=== PATIENT | male | born 1970 | race Caucasian/White ===

== ENCOUNTER 2017-10-08 16:52 | Inpatient (IN) | payer OTHER ==
[~2017-10-08] VITALS: Ht 190.5 cm; Wt 115.7 kg
[~2017-10-08 16:52] MED LIST: AMLO10TA2 PO; DOCU100C36 PO; IBUP-66 PO; Lisinopril PO; NAPR500T3 PO; NICO1PAT44 TP; OMEP20CA10 PO; PRAM0.253 PO; TRAZ-144 PO; VENL75CA56 PO
[2017-10-08 18:00] VITALS: BP 154/99
--- NOTE | 2017-10-08 18:00 | NUR ---
INTAKE ASSESSMENT Received patient in intake. He is AOX4, stable, and ambulatory. Vital signs WNL. Patient reports allergic to shell fish. Patient has seizure history last seizure was in April 2017. Patient brought home medications with him. Explained unit protocols and patient verbalized understanding. Will admit patient upon admission to third floor.
[2017-10-08 18:14] LABS: *AMPHETAMINE, URINE NEGATIVE (NEGATIVE); *BARBITURATE, URINE NEGATIVE (NEGATIVE); *CANNABINOID, URINE NEGATIVE (NEGATIVE); *COCCAINE, URINE NEGATIVE (NEGATIVE); *OPIATE, URINE NEGATIVE (NEGATIVE); *PHENCYCLIDINE SCREEN,URINE NEGATIVE (NEGATIVE)
[2017-10-08] MEDS ORDERED: ACETAMINOPHEN 325 MG TABLET PO PRN (18:45)
[2017-10-08] MEDS ORDERED: MIRALAX 17 GM POWD.PACK PO PRN (18:45)
[2017-10-08] MEDS ORDERED: LOPERAMIDE HCL 2 MG CAPSULE PO PRN ×2 (18:45)
[2017-10-08] MEDS ORDERED: LORAZEPAM 1 MG TABLET PO PRN ×2 (18:45)
[2017-10-08] MEDS ORDERED: MAG HYDROX/AL HYDROX/SIMETH 30 ML LIQUID UDC PO PRN (18:45)
[2017-10-08] MEDS ORDERED: ONDANSETRON ODT 4 MG TAB.RAPDIS SL PRN (18:45)
[2017-10-08] MEDS ORDERED: CLONIDINE HCL 0.1 MG TABLET PO PRN (18:45)
[2017-10-08] MEDS ORDERED: LORAZEPAM 2 MG/1 ML VIAL IM PRN (18:45)
[2017-10-08] MEDS ORDERED: MAGNESIUM HYDROXIDE 30 ML LIQUID UDC PO PRN (18:45)
[2017-10-08] MEDS ORDERED: ONDANSETRON 4 MG/2 ML VIAL IM PRN (18:45)
[2017-10-08] MEDS ORDERED: diphenhydrAMINE 50 MG CAPSULE PO PRN (18:45)
[2017-10-08] MEDS ORDERED: THIAMINE HCL 200 MG/2 ML VIAL IM ONE (18:45)
[2017-10-08] MEDS ORDERED: DICYCLOMINE HCL 20 MG TABLET PO PRN (18:45)
[2017-10-08] MEDS ORDERED: PRAM0.253 PO (18:54)
[2017-10-08] MEDS ORDERED: METO-302 PO (18:54)
[2017-10-08] MEDS ORDERED: campral (18:54)
[2017-10-08] MEDS ORDERED: ROPI0.5T PO (18:54)
[2017-10-08] MEDS ORDERED: TRAZ150T75 PO (18:54)
[2017-10-08] MEDS ORDERED: VENL75TA4 PO (18:54)
[2017-10-08] MEDS ORDERED: LISI-603 PO (18:54)
[2017-10-08] MEDS ORDERED: SIMV20TA6 PO (18:54)
[2017-10-08] MEDS ORDERED: NAPR500T6 PO (18:54)
[2017-10-08] MEDS ORDERED: TOPI25TA PO (18:54)
[2017-10-08 19:16] LABS: BASOPHILS # (AUTO) 0.1 K/uL (0.0-8.0); BASOPHILS % (AUTO) 0.5 % (0.0-2.0); EOSINOPHILS # (AUTO) 0.1 K/uL (0.0-0.7); EOSINOPHILS % (AUTO) 0.9 % (0.0-7.0); HEMATOCRIT 46.9 % (40-50); HEMOGLOBIN 15.1 G/DL (14.0-18.0); LYMPHOCYTES # (AUTO) 2.3 K/UL (0.8-4.8); MEAN CORPUSCULAR HEMOGLOBIN 25.5 UUG (27.0-31.0); MEAN CORPUSCULAR HGB CONC 32 g/dL (32.0-37.0); MEAN CORPUSCULAR VOLUME 78.7 FL (82.0-92.0); MONOCYTES # (AUTO) 0.6 K/UL (0.1-1.30); MONOCYTES % (AUTO) 5.9 % (0.0-11.0); NEUTROPHILS # (AUTO) 7.3 K/UL (1.8-8.9); NEUTROPHILS % (AUTO) 70.7 % (38.5-71.5); PLATELET COUNT (AUTO) 338 K/UL (150-450); RED BLOOD CELL COUNT(AUTO) 5.95 MIL/UL (4.7-6.1); WHITE BLOOD COUNT (AUTO) 10.4 K/UL (4.0-11.2)
[2017-10-08 19:22] LABS: BILIRUBIN,TOTAL 0.3 mg/dL (0.2-1.0); CREATININE 1.1 mg/dL (0.6-1.3); MAGNESIUM 1.7 mg/dL (1.8-2.4); POTASSIUM 3.6 mmol/L (3.5-5.1); TOTAL PROTEIN, SERUM 8.1 g/dL (6.4-8.2)
[2017-10-08] MEDS: IBUPROFEN 600 MG TABLET PO PRN (19:42)
--- NOTE | 2017-10-08 19:42 | NUR ---
PRN ATIVAN, MOTRIN, & CLONIDINE Patient has a CIWA score of 16 and reports pain 7/10 for his legs bilaterally. Patient's BP is 167/103, pt reports moderate anxiety and mild agitation. PRN Ativan 2mg given for CIWA of 16, Motrin 600mg given for pain, and Clonidine given for anxiety, agitation, and BP > 160/100. Patient's respirations 16/min, unlabored; pt denies SOB. SN stayed with patient and encouraged patient to verbalize feelings and utilize breathing exercises. Saftey measures in place, bed locked in low position, side rails up x2, call light within reach. Will reassess in one hour.
[2017-10-08 20:00] VITALS: BP 167/103
--- NOTE | 2017-10-08 20:30 | NUR ---
ADMISSION NOTE Patient is a 47-year-old male admitted on 10/08/17 for ETOH dependence, arrived on the unit at 1800. Patient is allergic to shellfish and reports he has a history of seizures. Patients last seizure was in April 2017. Patient was able to provide UDS at intake. Upon admission CIWA 16, BP: 167/103, P: 120, R: 18, O2: 96%, T: 99.5, pain: 7/10 bilateral legs. Weight 175, height 5 9. Patient reports he has a PCP and he smokes about 10 cigarettes daily. Patient was recently hospitalized, last month, 5150 at [facility] for DTS. Patient is able to understand and respond to all questions pertaining to his hospitalization. Substance Abuse History is as follows: 1. ETOH (vodka) 1.5 liters daily, at this rate for 8 months. Last intake was 500 mL on 10/08/17. Patients longest sober period for 8 months last year, and patient relapsed February of 2017. This is patients second treatment. His first treatment was last year at [facility]. Patient denies fci or fpc. Patient reports that his grandfather on his mothers side of the family was an alcoholic. PMH includes: Anxiety, pancreatitis (2011), sigmoid colon rupture and resection (3 feet), inguinal hernia x 2 (left x1, right x1), hyperkalemia, hypertension, diverticulitis, hypercholesterolemia, restless leg syndrome, and seizure history. Patient brought medications from home, they were reconciled by day shift nurse. Upon assessment, patient is alert and oriented x4, mildly intoxicated, presenting with anxiety and flushed face. Skin is intact, patient states he does not feel well. Patients respirations even and unlabored, patient denies SOB or chest pain. Patient reports mild nausea with no episodes of emesis. Bowel sounds active x 4, abdomen soft and non-tender, patient reports last BM was earlier today, normal, formed, brown and moderate amount, with no abnormal odor noted. PERRLA. Patient denies SI/HI. Educational information provided and left at bedside. Patient was oriented to room and unit, encouraged to notify staff/nurse with any concerns. Patient on fall and seizure precautions, safety measures in place. Call light within reach, side rails up x 2, bed locked and in low position. Will continue to monitor.
--- NOTE | 2017-10-08 20:42 | NUR ---
PRN ATIVAN, MOTRIN, & CLONIDINE REASSESSMENT Patient verbalizes feeling less anxious and less agitated. Patient reports pain 2/10 for his legs bilaterally. Patient's BP is 121/74 upon reassessment. PRN Ativan, Motrin, and Clonidine effective. Saftey measures in place, bed locked in low position, side rails up x2, call light within reach. Will continue to monitor.
[2017-10-08] MEDS: GABAPENTIN 300 MG CAPSULE PO SCH (21:29)
[2017-10-08] MEDS: HYDROXYZINE PAMOATE 25 MG CAPSULE PO PRN (22:18)
--- NOTE | 2017-10-08 22:18 | NUR ---
PRN VISTARIL Patient reports increase in anxiety. PRN Vistaril given PO. Safety measures in place, bed locked in low position, side rails up x2, call light within reach. Will reassess in one hour.
--- NOTE | 2017-10-08 23:18 | NUR ---
PRN VISTARIL REASSESSMENT Patient reports improvement in anxiety. PRN Vistaril effective. Patient's respirations even and unlabored. Safety measures in place, call light within reach. Will continue to monitor.
[2017-10-09] VITALS: BP 137/78
--- NOTE | 2017-10-09 | NUR ---
MIDNIGHT CIWA DEFERRED Midnight CIWA deferred due to patient asleep; to be assessed and scored while patient is awake per protocol. Patient's respirations are 16/min, even and unlabored. Safety measures in place, bed locked in low position, side rails up x2, call light within reach. Will continue to monitor.
[2017-10-09 04:00] VITALS: BP 142/90
--- NOTE | 2017-10-09 04:00 | NUR ---
4AM CIWA DEFERRED 4AM CIWA deferred due to patient asleep; to be assessed and scored while patient is awake per protocol. Patient's respirations are 16/min, even and unlabored. Safety measures in place, bed locked in low position, side rails up x2, call light within reach. Will continue to monitor.
--- NOTE | 2017-10-09 07:15 | NUR ---
END OF SHIFT Patient is a 47-year-old male admitted on 10/08/17 for ETOH dependence. Patient has past medical history of anxiety, pancreatitis (2011), sigmoid colon rupture and resection (3 feet), inguinal hernia x 2 (left x1, right x1), hyperkalemia, hypertension, diverticulitis, hypercholesterolemia, restless leg syndrome, and seizure history, patient's last seizure was in April 2017. Patient is allergic to shellfish, is FULL code, and on a regular diet. Patient slept for 7 hours, total intake 1,500 mL, void x4, stool x0. Patient received PRN Ativan, Motrin, Clonidine and Vistaril; all PRNs were effective. Last CIWA score was 16 at 2000. Patient is on fall and seizure precautions, safety measures in place. Call light within reach, side rails up x 2, bed locked and in low position. Will endorse to day shift.
--- NOTE | 2017-10-09 07:59 | NUR ---
BEGINNING OF SHIFT Patient endorsement report received from pearl maker nurse, all pertinent information discussed. patient is a 47 year old male admitted on: 10/08/2017, patient with admitting Dx: etoh dependence. Patient currently with no ongoing taper, is under close observation for s/sx of withdrawal. During pearl maker patient received PRN: Motrin, Ativan, Clonidine, and vistaril., last ciwa score of: 16. slept for 7 hours. Received patient in room. Alert and oriented x 4. On fall and seizure precautions. Educated patient on the current plan of care for the day and medication regimen. Safety measures in place. call light kept with in reach, will continue to monitor closely.
[2017-10-09 08:18] VITALS: BP 153/96
[2017-10-09] MEDS: GABAPENTIN 300 MG CAPSULE PO SCH ×3 (08:54→20:51)
[2017-10-09] MEDS: LORAZEPAM 1 MG TABLET PO SCH ×4 (08:54→20:51)
[2017-10-09] MEDS: DOCUSATE SODIUM 250 MG CAPSULE PO SCH (08:54)
[2017-10-09] MEDS: MULTIVITAMINS,THERAPEUTIC TABLET PO SCH (08:54)
[2017-10-09] MEDS: THIAMINE HCL 100 MG TABLET PO SCH (08:54)
[2017-10-09] MEDS: FOLIC ACID 1 MG TABLET PO SCH (08:54)
[2017-10-09] MEDS ORDERED: TUBERCULIN,PURIF.PROT.DERIV. 5 TU/0.1 ML TEST ID ONE (09:00)
[2017-10-09] MEDS ORDERED: 5 DAY TAPER OF LORAZEPAM -SERENITY PROTOCOL PO PRN (09:00)
[2017-10-09] MEDS ORDERED: DOCUSATE SODIUM 100 MG CAPSULE PO PRN (09:45)
[2017-10-09] MEDS ORDERED: PRAMIPEXOLE 0.25 MG TABLET PO SCH ×2 (09:45→18:00)
[2017-10-09] MEDS: LISINOPRIL 20 MG TABLET PO SCH ×2 (10:57→20:51)
[2017-10-09] MEDS: TOPIRAMATE 25 MG TABLET PO SCH ×2 (10:58→17:01)
[2017-10-09] MEDS: NICOTINE 14 MG/24HR PATCH TD SCH (10:58)
[2017-10-09] MEDS: AMLODIPINE 10 MG TABLET PO SCH (10:58)
[2017-10-09 12:25] VITALS: BP 146/96
[2017-10-09] MEDS: METOPROLOL SUCCINATE XL 25 MG TAB.SR.24H PO SCH (12:55)
[2017-10-09] MEDS ORDERED: METOPROLOL SUCCINATE XL 25 MG TAB.SR.24H PO SCH (13:00)
[2017-10-09] MEDS: VENLAFAXINE XR 75 MG CAP.SR.24H PO SCH (14:10)
[2017-10-09 17:50] VITALS: BP 149/96
[2017-10-09] MEDS ORDERED: ropiniROLE 0.5 MG TABLET PO SCH (18:00)
--- NOTE | 2017-10-09 18:56 | NUR ---
END OF SHIFT Patient alert and oriented x4, compliant with therapeutic plan of care. Patient with admitting Dx: etoh dependence. Patient continues on 5 day Ativan taper as ordered, well tolerated, patient currently on day 1 of taper, well tolerated, no ASE noted. 0900 assessment patient presented with: mild nausea with no vomiting, moderate tremors, mild sweats, moderate anxiety and very mild pins and needle sensation to feet with ciwa score of: 12; 1300 assessment patient presented with: moderate tremors, mild sweats, moderate anxiety and very mild pins and needle sensation to feet with ciwa score of: 11. 1700 assessment patient presented with: barely sweating, moderate tremors, moderate anxiety and very mild pins and needle sensation to feet with ciwa score of: 10. Detox medication effective at reducing withdrawal symptoms. Patient encouraged adequate PO fluid intake as tolerated. Encouraged to attend group therapies/sessions to learn new coping skills to prevent relapse, preferred to stay in room, per patient would like to rest, denies any SI/HI. Patient Patients Respirations even and unlabored. No SOB noted, lungs are clear upon auscultation. Skin warm and dry to touch. Abdomen soft and non-distended with (+) BS in all 4 quadrants. No complains of N/V/D or constipation noted. Bladder non-distended. Voids independently. Safety measures in place. Call light kept with in reach. All needs met and rendered. Patient endorsed to sale professional digital marketing nurse, all pertinent information discussed.
[2017-10-09] MEDS: PRAMIPEXOLE 0.25 MG TABLET PO SCH (19:05)
--- NOTE | 2017-10-09 19:30 | NUR ---
START OF SHIFT Pt is a 47 y/o male admitted on 10/08/17 for ETOH dependence. Pt was dependent on 1.5 L of vodka daily for the past 8 months. Pt is full code, regular diet, allergic to shellfish and on fall/seizure precautions. Pt reports PMH of seizures r/t withdrawal, HTN, hyperlipidemia, anxiety, hyperkalemia, restless leg syndrome, diverticulitis, hernia, ADHD and hepatitis C. Pt is on a 5 day Ativan taper that started on 10/09/17, tolerating well. Upon assessment pt presents with anxiety, restlessness, muscle cramps in thighs, elevated BP and HR, decreased appetite, intermittent nausea, sweats, chills, mild tremors. Respirations 16, even and unlabored. Denies N/V/D. Denies chest pain or SOB. Medications due. Safety measures in place. Call light within reach. Will continue to monitor.
[2017-10-09 20:00] VITALS: BP 138/87
[2017-10-09] MEDS: SIMVASTATIN 20 MG TABLET PO SCH (20:51)
[2017-10-10] VITALS: BP 128/82
--- NOTE | 2017-10-10 | NUR ---
CIWA DEFERRED Pt is laying in bed with eyes closed, CIWA deferred, to be assessed when pt is awake. Respirations 18, even and unlabored. Safety measures in place. Call light within reach. Will continue to monitor.
[2017-10-10 04:00] VITALS: BP 138/89
[2017-10-10] MEDS: PANTOPRAZOLE SODIUM 40 MG TABLET.DR PO SCH (06:39)
--- NOTE | 2017-10-10 06:45 | NUR ---
PRN ZOFRAN ODT ADMINISTRATION Pt reports mild nausea with no vomiting. Safety measures in place. Call light within reach. Will continue to monitor.
[2017-10-10 07:07] LABS: HEPATITIS B SURFACE AG Negative (Negative)
--- NOTE | 2017-10-10 07:15 | NUR ---
PRN ZOFRAN REASSESSMENT Pt reports improvement in nausea. Safety measures in place. Call light within reach. Will continue to monitor.
--- NOTE | 2017-10-10 07:24 | NUR ---
END OF SHIFT Pt is a 47 y/o male admitted on 10/08/17 for ETOH dependence. Pt was dependent on 1.5 L of vodka daily for the past 8 months. Pt is full code, regular diet, allergic to shellfish and on fall/seizure precautions. Pt reports PMH of seizures r/t withdrawal, HTN, hyperlipidemia, anxiety, hyperkalemia, restless leg syndrome, diverticulitis, hernia, ADHD and hepatitis C. Pt is on a 5 day Ativan taper that started on 10/09/17, tolerating well. Pt presented with anxiety, restlessness, muscle cramps in thighs, elevated BP and HR, decreased appetite, intermittent nausea, sweats, chills, mild tremors. Scheduled medications and PRN Zofran administered, effective in S/S of withdrawal as verbalized by pt. Last CIWA 5 at 1999. Pt slept 8 hours. Intake 500 ml, void x 2, stool x 0. Safety measures in place. Call light within reach. Pts needs have been met. Endorsed to day shift nurse.
--- NOTE | 2017-10-10 07:38 | NUR ---
BEGINNING OF SHIFT Patient endorsement report received from internal combustion engine subassembler nurse, all pertinent information discussed. patient is a 47 year old male admitted on: 10/08/2017, patient with admitting Dx: etoh dependence. Patient continues on a 5 day ativan taper as ordered, well tolerated, no ASE noted. patient is schedule dto begin day 2 of taper. During internal combustion engine subassembler patient received PRN: Zofran., last ciwa score of: 5. slept for 8 hours. Received patient in room. Alert and oriented x 4. On fall and seizure precautions. Educated patient on the current plan of care for the day and medication regimen. Safety measures in place. call light kept with in reach, will continue to monitor closely.
[2017-10-10 09:00] VITALS: BP 144/95
[2017-10-10] MEDS: AMLODIPINE 10 MG TABLET PO SCH (09:39)
[2017-10-10] MEDS: DOCUSATE SODIUM 250 MG CAPSULE PO SCH (09:39)
[2017-10-10] MEDS: TOPIRAMATE 25 MG TABLET PO SCH ×2 (09:39→17:23)
[2017-10-10] MEDS: METOPROLOL SUCCINATE XL 25 MG TAB.SR.24H PO SCH (09:39)
[2017-10-10] MEDS: VENLAFAXINE XR 75 MG CAP.SR.24H PO SCH (09:39)
[2017-10-10] MEDS: LORAZEPAM 1 MG TABLET PO SCH ×3 (09:39→20:23)
[2017-10-10] MEDS: GABAPENTIN 300 MG CAPSULE PO SCH ×3 (09:39→20:24)
[2017-10-10] MEDS: MULTIVITAMINS,THERAPEUTIC TABLET PO SCH (09:39)
[2017-10-10] MEDS: FOLIC ACID 1 MG TABLET PO SCH (09:40)
[2017-10-10] MEDS: LISINOPRIL 20 MG TABLET PO SCH ×2 (09:40→20:23)
[2017-10-10] MEDS: THIAMINE HCL 100 MG TABLET PO SCH (09:40)
[2017-10-10] MEDS: NICOTINE 14 MG/24HR PATCH TD SCH (09:40)
[2017-10-10 13:14] VITALS: BP 139/93
[2017-10-10] MEDS ORDERED: LORAZEPAM 1 MG TABLET PO PRN ×2 (13:30)
--- NOTE | 2017-10-10 14:32 | NUR ---
Therapist prompted client to attend group. Client agreed to come to group.
[2017-10-10 17:08] VITALS: BP 131/90
[2017-10-10] MEDS: PRAMIPEXOLE 0.25 MG TABLET PO SCH (18:52)
--- NOTE | 2017-10-10 19:02 | NUR ---
END OF SHIFT Patient alert and oriented x4, compliant with therapeutic plan of care. Patient with admitting Dx: etoh dependence. Patient continues on 5 day Ativan taper as ordered, well tolerated, patient currently on day 2 of taper, well tolerated, no ASE noted. 0900 assessment patient presented with: tremors that can be felt but not seen, barely sweating, and moderate anxiety with ciwa score of: 7; 1300 assessment patient presented with: tremors that can be felt but not seen, barely sweating, and moderate anxiety with ciwa score of: 7; 1700 assessment patient presented with: tremors that can be felt but not seen, barely sweating, and moderate anxiety with ciwa score of: 7. Detox medication effective at reducing withdrawal symptoms. Patient encouraged adequate PO fluid intake as tolerated. Encouraged to attend group therapies/sessions to learn new coping skills to prevent relapse, denies any SI/HI. Patient Patients Respirations even and unlabored. No SOB noted, lungs are clear upon auscultation. Skin warm and dry to touch. Abdomen soft and non-distended with (+) BS in all 4 quadrants. No complains of N/V/D or constipation noted. Bladder non-distended. Voids independently. Safety measures in place. Call light kept with in reach. All needs met and rendered. Patient endorsed to night worker nurse, all pertinent information discussed.
[2017-10-10 20:00] VITALS: BP 136/91
--- NOTE | 2017-10-10 20:00 | NUR ---
START OF SHIFT NOTE RECEIVED REPORT FROM DAY SHIFT NURSE. PATIENT IS A 47 YEAR OLD MALE ADMITTED FOR ETOH DEPENDENCE. PATIENT IS ON 2ND DAY OF HIS 5 DAY ATIVAN TAPER. PATIENT IS ALLERGIC TO SHELLFISH. SEIZURE HISTORY, LAST WAS APRIL 2017. SKIN INTACT. VS STABLE. PATIENT DID NOT REQUIRE ANY PRN MEDICATION. LAST CIWA 7. PATIENT COMPLIANT WITH MEDICATION AND TREATMENT PLAN. ON FALL/SEIZURE PRECAUTION. RECEIVED PATIENT IN THE ROOM, WATCHING TV, PATIENT REPORTS ANXIETY, SWEATING, NOTED WITH FINE TREMORS, DENIES ANY PAIN, NO N/V AND HE ATTENDED GROUPS . SAFETY MEASURES IN PLACE. CALL LIGHT IN REACH. WILL CONTINUE TO MONITOR
[2017-10-10] MEDS: SIMVASTATIN 20 MG TABLET PO SCH (20:24)
[2017-10-10] MEDS: HYDROXYZINE PAMOATE 25 MG CAPSULE PO PRN (21:26)
--- NOTE | 2017-10-10 21:26 | NUR ---
PRN VISTARIL ADMINISTRATION PATIENT C/O ANXIETY, NOTED RESTLESS AND IRRITABLE. PRN VISTARIL GIVEN. WILL MONITOR FOR EFFECTIVENESS
--- NOTE | 2017-10-10 22:26 | NUR ---
PRN VISTARIL RE-ASSESSMENT PATIENT ASLEEP AT THIS TIME. RESPIRATION EVEN AND UNLABORED. SAFETY MEASURES IN PLACE. CALL LIGHT IN REACH. WILL CONTINUE TO MONITOR
--- NOTE | 2017-10-11 | NUR ---
CIWA DEFERRED PATIENT SLEEPING . CIWA DEFERRED. PATIENT REFUSED VS, WANTS TO SLEEP. RESPIRATION EVEN AND UNLABORED. SAFETY MEASURES IN PLACE. CALL LIGHT IN REACH. WILL CONTINUE TO MONITOR.
[2017-10-11] MEDS: PANTOPRAZOLE SODIUM 40 MG TABLET.DR PO SCH (06:32)
--- NOTE | 2017-10-11 07:27 | NUR ---
END OF SHIFT NOTE PATIENT IS A 47 YEAR OLD MALE ADMITTED FOR ETOH DEPENDENCE. PATIENT IS ON 5 DAY ATIVAN TAPER, TOLERATED WELL AND NO ADVERSE REACTION. PATIENT IS ALLERGIC TO SHELLFISH. SEIZURE HISTORY, LAST WAS APRIL 2017. SKIN INTACT. PATIENT COMPLIANT WITH MEDICATION AND TREATMENT PLAN. PATIENT WAS GIVEN PRN OF VISTARIL AT 2126 FOR ANXIETY. ON FALL/SEIZURE PRECAUTION. SAFETY MEASURES IN PLACE. CALL LIGHT IN REACH. WILL CONTINUE TO MONITOR. SLEPT 8 HOURS. FLUID INTAKE 1,000 ML. VOIDED X 4. NO BM. LAST CIWA 5 AT 2000.
--- NOTE | 2017-10-11 07:32 | NUR ---
BEGINNING OF SHIFT Patient endorsement report received from civil design specialist nurse, all pertinent information discussed. patient is a 47 year old male admitted on: 10/08/2017, patient with admitting Dx: etoh dependence. Patient continues on a 5 day Ativan taper as ordered, well tolerated, no ASE noted. patient is scheduled to begin day 3 of taper. During civil design specialist patient received PRN: Vistaril., last ciwa score of: 5. slept for 8 hours. Received patient in room. Alert and oriented x 4. On fall and seizure precautions. Educated patient on the current plan of care for the day and medication regimen. Safety measures in place. call light kept with in reach, will continue to monitor closely.
[2017-10-11 08:06] VITALS: BP 121/86
[2017-10-11] MEDS: GABAPENTIN 300 MG CAPSULE PO SCH ×3 (08:36→20:32)
[2017-10-11] MEDS: FOLIC ACID 1 MG TABLET PO SCH (08:37)
[2017-10-11] MEDS: DOCUSATE SODIUM 250 MG CAPSULE PO SCH (08:37)
[2017-10-11] MEDS: AMLODIPINE 10 MG TABLET PO SCH (08:37)
[2017-10-11] MEDS: METOPROLOL SUCCINATE XL 25 MG TAB.SR.24H PO SCH (08:37)
[2017-10-11] MEDS: THIAMINE HCL 100 MG TABLET PO SCH (08:37)
[2017-10-11] MEDS: TOPIRAMATE 25 MG TABLET PO SCH ×2 (08:37→16:50)
[2017-10-11] MEDS: MULTIVITAMINS,THERAPEUTIC TABLET PO SCH (08:37)
[2017-10-11] MEDS: LISINOPRIL 20 MG TABLET PO SCH ×2 (08:37→20:32)
[2017-10-11] MEDS: LORAZEPAM 1 MG TABLET PO SCH ×4 (08:37→20:32)
[2017-10-11] MEDS: VENLAFAXINE XR 75 MG CAP.SR.24H PO SCH (08:37)
[2017-10-11] MEDS: NICOTINE 14 MG/24HR PATCH TD SCH (08:38)
[2017-10-11 12:26] VITALS: BP 121/86
--- NOTE | 2017-10-11 14:22 | NUR ---
Therapist prompted client to attend group today. Client agreed to attend.
[2017-10-11] MEDS: buPROPion XL 150 MG TAB.SR.24H PO SCH (16:50)
[2017-10-11 16:51] VITALS: BP 118/78
--- NOTE | 2017-10-11 18:33 | NUR ---
END OF SHIFT Patient alert and oriented x4, compliant with therapeutic plan of care. Patient with admitting Dx: etoh dependence. Patient continues on 5 day Ativan taper as ordered, well tolerated, patient currently on day 3 of taper, well tolerated, no ASE noted. 0900 assessment patient presented with: tremors that can be felt but not seen, barely sweating, moderate anxiety, an mild agitation with ciwa score of: 7; 1300 assessment patient presented with: anxiety with ciwa score of: 4; 1700 assessment patient t presented with: anxiety with ciwa score of: 4. Detox medication effective at reducing withdrawal symptoms. Patient encouraged adequate PO fluid intake as tolerated. Encouraged to attend group therapies/sessions to learn new coping skills to prevent relapse, denies any SI/HI. Patient Patients Respirations even and unlabored. No SOB noted, lungs are clear upon auscultation. Skin warm and dry to touch. Abdomen soft and non-distended with (+) BS in all 4 quadrants. No complains of N/V/D or constipation noted. Bladder non-distended. Voids independently. Safety measures in place. Call light kept with in reach. All needs met and rendered. Patient endorsed to band saw operator cake cutting nurse, all pertinent information discussed.
[2017-10-11] MEDS: PRAMIPEXOLE 0.25 MG TABLET PO SCH (19:47)
[2017-10-11 20:00] VITALS: BP 128/84
--- NOTE | 2017-10-11 20:00 | NUR ---
Start of Shift Pt is a 47 year old male admitted for ETOH dependence, placed on 5 day Ativan taper. Pt reported consuming Vodka 1.5b/daily. PMH: anxiety, HTN, Hypercholesterolemia, hyperkalemia, restless leg syndrome, diverticulitis, inguinal hernia x2, pancreatitis, sigmoid colon rupture & resection, ADHD and seizure history. Pt reports allergies to shellfish, regular diet, fall/seizure precautions and full code. Upon reassessment, pt reports feeling anxious, skin is flushed/clammy, mild chills/body aches, fine tremors noted, respirations even/unlabored, denies n/v/d, medications due. Safety measures in place, call light within reach, side rails up x2, bed locked and in low position. Will continue to monitor.
[2017-10-11] MEDS: SIMVASTATIN 20 MG TABLET PO SCH (20:32)
[2017-10-11] MEDS: TRAZODONE 100 MG TABLET PO SCH (20:33)
--- NOTE | 2017-10-12 | NUR ---
KASHWA deferred d/t pt sleeping to assess while pt is awake as ordered. Pt refused to be woken up for [address], will continue to monitor.
--- NOTE | 2017-10-12 04:00 | NUR ---
KASHWA deferred d/t pt sleeping to assess while pt is awake as ordered. Pt refused to be woken up for [address], will continue to monitor.
[2017-10-12] MEDS: PANTOPRAZOLE SODIUM 40 MG TABLET.DR PO SCH (06:54)
--- NOTE | 2017-10-12 07:05 | NUR ---
End of Shift Pt is a 47 year old male admitted for ETOH dependence, placed on 5 day Ativan taper. Pt reported consuming Vodka 1.5b/daily. PMH: anxiety, HTN, Hypercholesterolemia, hyperkalemia, restless leg syndrome, diverticulitis, inguinal hernia x2, pancreatitis, sigmoid colon rupture & resection, ADHD and seizure history. Pt reports allergies to shellfish, regular diet, fall/seizure precautions and full code. During shift, pt reported feeling anxious, skin is flushed/clammy, mild chills/body aches, fine tremors noted scheduled taper medications administered, effective in management of s/s of withdrawal as reported per pt, CIWA 5. No PRN medications administered during shift. Pt slept for 7 hours, intake of 1296 ml PO, voids x3, and stool x0. Pt continues on a 1:1 for safety. Safety measures in place, call light within reach, side rails up x2, bed locked and in low position. Endorsed to day shift nurse.
--- NOTE | 2017-10-12 07:30 | NUR ---
START OF SHIFT Pt 47 y/o male admitted for etoh withdrawal. Pt received in room on bed with eyes closed resting, but easily arousable to name. Pt alert and oriented to name, place, and time. Perrla. Skin warm and slightly moist to touch. Respirations even and unlabored. No hand tremors noted. Pt states has some anxiety this morning. It was reported that pt slept for 7 hours last night. Bed on lowest position with side rails x2 up for safety. Call light within reach. No distress noted at this time.
[2017-10-12] MEDS: buPROPion XL 150 MG TAB.SR.24H PO SCH (08:24)
[2017-10-12] MEDS: METOPROLOL SUCCINATE XL 25 MG TAB.SR.24H PO SCH (08:24)
[2017-10-12] MEDS: LISINOPRIL 20 MG TABLET PO SCH ×2 (08:25→21:43)
[2017-10-12] MEDS: THIAMINE HCL 100 MG TABLET PO SCH (08:25)
[2017-10-12] MEDS: AMLODIPINE 10 MG TABLET PO SCH (08:25)
[2017-10-12] MEDS: FOLIC ACID 1 MG TABLET PO SCH (08:25)
[2017-10-12] MEDS: TOPIRAMATE 25 MG TABLET PO SCH ×2 (08:25→16:35)
[2017-10-12] MEDS: MULTIVITAMINS,THERAPEUTIC TABLET PO SCH (08:25)
[2017-10-12] MEDS: LORAZEPAM 1 MG TABLET PO SCH ×2 (08:26→14:11)
[2017-10-12] MEDS: GABAPENTIN 300 MG CAPSULE PO SCH ×3 (08:26→20:27)
[2017-10-12] MEDS: NICOTINE 14 MG/24HR PATCH TD SCH (08:29)
[2017-10-12] MEDS: DOCUSATE SODIUM 250 MG CAPSULE PO SCH (08:29)
[2017-10-12 08:30] VITALS: BP 106/68
--- NOTE | 2017-10-12 12:26 | NUR ---
Therapist prompted client to come to group. Client agreed
[2017-10-12 12:53] VITALS: BP 112/72
[2017-10-12] MEDS ORDERED: NICOTINE 14 MG/24HR PATCH TD PRN (15:30)
[2017-10-12 16:00] VITALS: BP 115/70
[2017-10-12] MEDS ORDERED: hydrALAZINE HCL 50 MG TABLET PO PRN (16:00)
--- NOTE | 2017-10-12 18:27 | NUR ---
END OF SHIFT Pt 47 y/o male admitted for etoh withdrawal. Pt alert and oriented to name, place, and time. Perrla. Skin warm and slightly moist to touch. Respirations even and unlabored. Bilateral hand tremors noted slightly. Pt with some periods of anxiety this morning. Pt observed mostly in room , but did attend group activity today. Pt was seen by MD today. Pt medication compliant and tolerated well. No ASE noted. Bed on lowest position with side rails x2 up for safety. Call light within reach. No distress noted at this time.
--- NOTE | 2017-10-12 19:30 | NUR ---
Start of Shift Received a 47 year old male admitted on 10/08/2017 for ETOH dependence, placed on 5 day Ativan taper. PMH: anxiety, HTN, Hypercholesterolemia, hyperkalemia, restless leg syndrome, diverticulitis, inguinal hernia x2, pancreatitis, sigmoid colon rupture & resection, ADHD and seizure history. Px has allergies to shellfish, on regular diet, fall/seizure precautions and full code. During rounds at 1930, no complaints made. Safety measures in place, call light within reach, side rails up x2, bed locked and in low position. We'll continue to monitor.
[2017-10-12 20:00] VITALS: BP 91/59
[2017-10-12] MEDS: SIMVASTATIN 20 MG TABLET PO SCH (20:27)
[2017-10-12] MEDS ORDERED: LORAZEPAM 1 MG TABLET PO SCH (21:00)
[2017-10-12] MEDS ORDERED: PRAMIPEXOLE 0.25 MG TABLET PO SCH (21:00)
[2017-10-12] MEDS: TRAZODONE 100 MG TABLET PO SCH (21:41)
[2017-10-13] VITALS: BP 94/61
--- NOTE | 2017-10-13 | NUR ---
CIWA deferred CIWA deferred due to the px is asleep. To assess if the px is awake per doctor's order. We'll continue to monitor.
[2017-10-13 04:00] VITALS: BP 121/72
--- NOTE | 2017-10-13 04:00 | NUR ---
CIWA deferred CIWA deferred due to the px is asleep. To assess if the px is awake per doctor's order. We'll continue to monitor.
[2017-10-13] MEDS: PANTOPRAZOLE SODIUM 40 MG TABLET.DR PO SCH (06:34)
--- NOTE | 2017-10-13 07:19 | NUR ---
End of Shift Notes 47 year old male admitted on 10/08/2017 for ETOH dependence, placed on 5 day Ativan taper. PMH: anxiety, HTN, Hypercholesterolemia, hyperkalemia, restless leg syndrome, diverticulitis, inguinal hernia x2, pancreatitis, sigmoid colon rupture & resection, ADHD and seizure history. Px has allergies to shellfish, on regular diet, fall/seizure precautions and full code. During the shift, no complaints made. Oral intake of 1 L, voided 3x, No BM. Slept for 8 hours. Safety measures in place, call light within reach, side rails up x2, bed locked and in low position. We'll continue to monitor.
--- NOTE | 2017-10-13 07:30 | NUR ---
START OF SHIFT Pt 47 y/o male admitted for etoh withdrawal. Pt received in room on bed with eyes closed resting, but easily arousable to name. Pt alert and oriented to name, place, and time. Perrla. Skin warm and slightly moist to touch. Respirations even and unlabored. No hand tremors noted. It was reported that pt slept for 8 hours last night. Bed on lowest position with side rails x2 up for safety. Call light within reach. No distress noted at this time.
[2017-10-13 08:00] VITALS: BP 121/69
[2017-10-13] MEDS: MULTIVITAMINS,THERAPEUTIC TABLET PO SCH (08:23)
[2017-10-13] MEDS: FOLIC ACID 1 MG TABLET PO SCH (08:23)
[2017-10-13] MEDS: AMLODIPINE 10 MG TABLET PO SCH (08:23)
[2017-10-13] MEDS: GABAPENTIN 300 MG CAPSULE PO SCH ×3 (08:23→21:43)
[2017-10-13] MEDS: LISINOPRIL 20 MG TABLET PO SCH ×2 (08:23→21:45)
[2017-10-13] MEDS: TOPIRAMATE 25 MG TABLET PO SCH ×2 (08:23→16:39)
[2017-10-13] MEDS: buPROPion XL 150 MG TAB.SR.24H PO SCH (08:24)
[2017-10-13] MEDS: THIAMINE HCL 100 MG TABLET PO SCH (08:24)
[2017-10-13] MEDS: LORAZEPAM 1 MG TABLET PO SCH ×2 (08:24→21:44)
[2017-10-13] MEDS: METOPROLOL SUCCINATE XL 25 MG TAB.SR.24H PO SCH (08:24)
[2017-10-13] MEDS: NICOTINE 14 MG/24HR PATCH TD SCH (08:28)
[2017-10-13 12:00] VITALS: BP 128/68
[2017-10-13 16:00] VITALS: BP 103/62
--- NOTE | 2017-10-13 18:38 | NUR ---
END OF SHIFT Pt 47 y/o male admitted for etoh withdrawal. Pt alert and oriented to name, place, and time. Perrla. Skin warm and slightly moist to touch. Respirations even and unlabored. Bilateral hand tremors noted slightly. Pt with some periods of anxiety this morning. Pt observed mostly in room throughout the day, but did attend group activity today. Pt was seen by MD today. Pt medication compliant and tolerated well. No ASE noted. Bed on lowest position with side rails x2 up for safety. Call light within reach. No distress noted at this time.
[2017-10-13] MEDS: PRAMIPEXOLE 0.25 MG TABLET PO SCH (19:04)
[2017-10-13] MEDS: IBUPROFEN 600 MG TABLET PO PRN (19:05)
--- NOTE | 2017-10-13 19:07 | NUR ---
PRN pt with c/o headache 03/14. Motrin po prn per MD order given and tolerated well.
--- NOTE | 2017-10-13 19:15 | NUR ---
START OF SHIFT NOTE : Pt is a 47 year old male admitted for ETOH dependence, placed on 5 day Ativan taper. PMH: anxiety, HTN, Hypercholesterolemia, hyperkalemia, restless leg syndrome, diverticulitis, inguinal hernia x2, pancreatitis, sigmoid colon rupture & resection, ADHD and seizure history. Pt reports allergies to shellfish, regular diet, fall/seizure precautions and full code. Pt. is in the activity room, participates in the meeting. Safety measures in place, call light within reach, side rails up x2, bed locked and in low position. Will continue to monitor.
[2017-10-13 20:00] VITALS: BP 110/64
[2017-10-13] MEDS: SIMVASTATIN 20 MG TABLET PO SCH (21:44)
[2017-10-13] MEDS: TRAZODONE 100 MG TABLET PO SCH (21:44)
--- NOTE | 2017-10-14 06:51 | NUR ---
END OF SHIFT NOTE : Pt is a 47 year old male admitted for ETOH dependence, placed on 5 day Ativan taper. PMH: anxiety, HTN, Hypercholesterolemia, hyperkalemia, restless leg syndrome, diverticulitis, inguinal hernia x2, pancreatitis, sigmoid colon rupture & resection, ADHD and seizure history. Pt reports allergies to shellfish, regular diet, fall/seizure precautions and full code. Pt remains compliant with the treatment plan. No PRNs were given during my shift. V/S remain WNL. RR=16, even and unlabored, lungs clear upon auscultation, abdomen soft and non- distended. Pt denies nausea, vomiting and diarrhea. CIWA taken when pt. was alert during the night, LAST CIWA= 2 at 0400 , INTAKE= 472 ml, voided x 2, slept 7 hours. Safety measures in place : bed on lowest position with side rails x2 up for safety, call light within reach. Will continue to monitor closely and offer help.
[2017-10-14] MEDS: PANTOPRAZOLE SODIUM 40 MG TABLET.DR PO SCH (07:14)
[2017-10-14 08:00] VITALS: BP 127/71
--- NOTE | 2017-10-14 08:00 | NUR ---
START OF SHIFT RECEIVED PT IN ROOM, A/O X4, RESPIRATION EVEN AND UNLABORED. PT REPORTS ANXIETY AND RESTLESSNESS. PT DENIES N/V, OR DIARRHEA. PT WAS ON A 5 DAY ATIVAN TAPER THAT ENDED YESTERDAY 10/13/17. PT HAS ALLERGIES TO SHELLFISH. PT HAS A SZ HISTORY AND HEP C. BED IS ON LOWEST POSITION, CALL LIGHT WITHIN REACH. SZ AND SAFETY MEASURES TAKEN. WILL CONTINUE TO MONITOR AND PROVIDE SUPPORT.
[2017-10-14] MEDS: AMLODIPINE 10 MG TABLET PO SCH (08:37)
[2017-10-14] MEDS: THIAMINE HCL 100 MG TABLET PO SCH (08:37)
[2017-10-14] MEDS: FOLIC ACID 1 MG TABLET PO SCH (08:37)
[2017-10-14] MEDS: GABAPENTIN 300 MG CAPSULE PO SCH ×3 (08:37→20:57)
[2017-10-14] MEDS: TOPIRAMATE 25 MG TABLET PO SCH ×2 (08:37→17:06)
[2017-10-14] MEDS: MULTIVITAMINS,THERAPEUTIC TABLET PO SCH (08:38)
[2017-10-14] MEDS: LISINOPRIL 20 MG TABLET PO SCH ×2 (08:38→20:58)
[2017-10-14] MEDS: buPROPion XL 150 MG TAB.SR.24H PO SCH (08:38)
[2017-10-14] MEDS: METOPROLOL SUCCINATE XL 25 MG TAB.SR.24H PO SCH (08:40)
[2017-10-14] MEDS: NICOTINE 14 MG/24HR PATCH TD SCH (09:00)
[2017-10-14] MEDS ORDERED: LORAZEPAM 1 MG TABLET PO SCH (09:00)
[2017-10-14] MEDS ORDERED: SHARK LIVER OIL/PETROLAT OINT 60 GM TUBE RC PRN (11:45)
[2017-10-14 12:00] VITALS: BP 123/85
[2017-10-14 16:00] VITALS: BP 105/61
[2017-10-14] MEDS: PRAMIPEXOLE 0.25 MG TABLET PO SCH (19:06)
--- NOTE | 2017-10-14 19:08 | NUR ---
PRN PT C/O OF HAVING HEMORRHOIDS AND PREPARATION H OINTMENT PRN WAS GIVEN TO PT TO USE.
--- NOTE | 2017-10-14 19:30 | NUR ---
START OF SHIFT Pt is a 47 y/o male admitted on 10/08/17 for ETOH dependence. Pt was dependent on 1.5 L of vodka daily for the past 8 months. Pt is full code, regular diet, allergic to shellfish and on fall/seizure precautions. Pt reports PMH of seizures r/t withdrawal, HTN, hyperlipidemia, anxiety, hyperkalemia, restless leg syndrome, diverticulitis, hernia, ADHD and hepatitis C. Pt finished a 5 day Ativan taper. Pt is scheduled to be D/C tomorrow. Upon assessment pt presents with anxiety, restlessness, elevated HR, flushed skin. Respirations 16, even and unlabored. Denies N/V/D. Denies chest pain or SOB. Medications due. Safety measures in place. Call light within reach. Will continue to monitor.
[2017-10-14] MEDS ORDERED: HYDR-3895 PO (19:59)
[2017-10-14] MEDS ORDERED: DIPH50CA37 PO (19:59)
[2017-10-14] MEDS ORDERED: METO-302 PO (19:59)
[2017-10-14] MEDS ORDERED: GABA-534 PO (19:59)
[2017-10-14] MEDS ORDERED: PRAM0.253 PO (19:59)
[2017-10-14] MEDS ORDERED: SIMV20TA6 PO (19:59)
[2017-10-14] MEDS ORDERED: TOPI25TA PO (19:59)
[2017-10-14] MEDS ORDERED: AMLO10TA2 PO (19:59)
[2017-10-14] MEDS ORDERED: LISI-603 PO (19:59)
[2017-10-14] MEDS ORDERED: IBUP-1955 PO (19:59)
[2017-10-14] MEDS ORDERED: BUPR-96 PO (19:59)
[2017-10-14] MEDS ORDERED: TRAZ-147 PO (19:59)
[2017-10-14 20:00] VITALS: BP 107/67
[2017-10-14] MEDS: SIMVASTATIN 20 MG TABLET PO SCH (20:58)
[2017-10-14] MEDS: TRAZODONE 100 MG TABLET PO SCH (20:58)
--- NOTE | 2017-10-15 | NUR ---
CIWA DEFERRED AND VITALS REFUSED Pt laying in bed with eyes closed, CIWA deferred, to be assessed when pt is awake per orders. Vitals refused. Respirations 16, even and unlabored. Safety measures in place. Call light within reach. Will continue to monitor.
[2017-10-15] MEDS: PANTOPRAZOLE SODIUM 40 MG TABLET.DR PO SCH (07:24)
--- NOTE | 2017-10-15 07:24 | NUR ---
END OF SHIFT Pt is a 47 y/o male admitted on 10/08/17 for ETOH dependence. Pt was dependent on 1.5 L of vodka daily for the past 8 months. Pt is full code, regular diet, allergic to shellfish and on fall/seizure precautions. Pt reports PMH of seizures r/t withdrawal, HTN, hyperlipidemia, anxiety, hyperkalemia, restless leg syndrome, diverticulitis, hernia, ADHD and hepatitis C. Pt finished a 5 day Ativan taper. Pt is scheduled to be D/C today. Pt presented with anxiety, restlessness, elevated HR, flushed skin. Scheduled medications administered, effective in S/S of withdrawal as verbalized by pt. Last CIWA 3 at 1999. No PRNS administered. Pt slept 6 hours. Intake 1560 ml, void x 4, stool x 0. Safety measures in place. Call light within reach. Pts needs have been met. Endorsed to day shift nurse.
--- NOTE | 2017-10-15 07:37 | NUR ---
START OF SHIFT Received report from market research associate nurse. 47 year old male patient admitted on 10/08/17 for ETOH withdrawals. Pt has completed a 5 day Ativan taper and is medically cleared for discharge. No S/S of acute withdrawals. No PRN medications needed or administered at night. MRSA results are negative. Pt slept for 6 hours. Most recent CIWA is 3. All needs met at this time, will continue to monitor.
[2017-10-15 08:06] VITALS: BP 136/83
[2017-10-15] MEDS: AMLODIPINE 10 MG TABLET PO SCH (08:50)
[2017-10-15] MEDS: METOPROLOL SUCCINATE XL 25 MG TAB.SR.24H PO SCH (08:50)
[2017-10-15] MEDS: TOPIRAMATE 25 MG TABLET PO SCH (08:51)
[2017-10-15] MEDS: THIAMINE HCL 100 MG TABLET PO SCH (08:51)
[2017-10-15] MEDS: MULTIVITAMINS,THERAPEUTIC TABLET PO SCH (08:51)
[2017-10-15] MEDS: buPROPion XL 150 MG TAB.SR.24H PO SCH (08:51)
[2017-10-15] MEDS: LISINOPRIL 20 MG TABLET PO SCH (08:51)
[2017-10-15] MEDS: FOLIC ACID 1 MG TABLET PO SCH (08:51)
[2017-10-15] MEDS: GABAPENTIN 300 MG CAPSULE PO SCH (08:51)
[2017-10-15] MEDS: NICOTINE 14 MG/24HR PATCH TD SCH (08:53)
[2017-10-15 12:42] VITALS: BP 135/89
--- NOTE | 2017-10-15 12:51 | NUR ---
D/C NOTE Pt is in stable condition. Vitals WNL, Pt alert and oriented x4, skin intact, Pt denies any SI/HI. All discharge paperwork completed dated and signed. Pt educated about discharge instructions, pt verbalized understanding. Pt was provided with all of his discharge paperwork. Pt left the building with all of his belongings, prescriptions and medications. MD and psychiatrist have been contacted notified and aware of pt's d/c.
== END 2017-10-15 12:51 | disposition home or self-care (01) | DRG 895 ==
LOC: SRC 17:15
PROVIDERS: ADMIT Internal Medicine; ATTEND Internal Medicine
PROC: HZ2ZZZZ Detoxification Services for Substance Abuse Treatment (ICD-10-PCS; principal; 2017-10-08)
PROC: HZ41ZZZ Group Counseling for Substance Abuse Treatment, Behavioral (ICD-10-PCS; 2017-10-09)
PROC: HZ31ZZZ Individual Counseling for Substance Abuse Treatment, Behavioral (ICD-10-PCS; 2017-10-10)
DX: F10.230 Alcohol dependence with withdrawal, uncomplicated (principal); K70.10 Alcoholic hepatitis without ascites; E83.42 Hypomagnesemia; E86.0 Dehydration; Y90.9 Presence of alcohol in blood, level not specified; K21.9 Gastro-esophageal reflux disease without esophagitis; I10 Essential (primary) hypertension; F41.9 Anxiety disorder, unspecified; Z90.49 Acquired absence of other specified parts of digestive tract; Z81.1 Family history of alcohol abuse and dependence; G47.00 Insomnia, unspecified; F17.210 Nicotine dependence, cigarettes, uncomplicated; E78.5 Hyperlipidemia, unspecified; G25.81 Restless legs syndrome; F32.9 Major depressive disorder, single episode, unspecified; K57.90 Diverticulosis of intestine, part unspecified, without perforation or abscess without bleeding
CPT/HCPCS: 36415; 70030-TC; 80307; 83735; 85025; 86580; 86592; 86705; 86803; 87340; 87806; A9150; G0480; J3411; Q0162